=== PATIENT | female | born 1945 | race Caucasian/White ===

== ENCOUNTER 2017-07-25 12:24 | Emergency (ER) | payer OTHER ==
[~2017-07-25] VITALS: Ht 162.6 cm; Wt 73.5 kg
[~2017-07-25 12:24] MED LIST: CLONAZEPAM0.5 MG; LEVAQUIN750 MG PO; SERTRALINE HCL50 MG
[2017-07-25] MEDS ORDERED: CEPHALEXIN500 M1 (12:59)
[2017-07-25] MEDS ORDERED: ACYCLOVIR800 MG (12:59)
[2017-07-25] MEDS ORDERED: POLYMYXIN B-TMP10 ML (13:00)
== END 2017-07-25 14:03 | disposition home or self-care (01) ==
LOC: ER 12:24
DX: H05.011 Cellulitis of right orbit (principal); B02.9 Zoster without complications

== ENCOUNTER 2020-05-17 16:22 | Emergency (ER) | payer OTHER ==
[~2020-05-17] VITALS: Ht 160 cm; Wt 85.3 kg
[~2020-05-17 16:22] MED LIST changes: +ACYCLOVIR800 MG; +CEPHALEXIN500 M1; +POLYMYXIN B-TMP10 ML
== END 2020-05-17 19:09 | disposition home or self-care (01) ==
LOC: ER 16:22
DX: R41.0 Disorientation, unspecified (principal)

== ENCOUNTER 2020-05-18 09:41 | Outpatient (CLI) | payer OTHER | END 2020-05-18 09:54 | disposition home or self-care (01) | LOC: NUCLEAR 09:41 | DX: R41.0 Disorientation, unspecified (principal); I67.89 Other cerebrovascular disease ==

== ENCOUNTER 2020-05-18 12:06 | Outpatient (CLI) | payer OTHER | END 2020-05-18 12:19 | disposition home or self-care (01) | LOC: MRI 12:06 | PROVIDERS: ATTEND Psychiatry & Neurology Clinical Neurophysiology | DX: R41.89 Other symptoms and signs involving cognitive functions and awareness (principal); G93.89 Other specified disorders of brain | CPT/HCPCS: 70551 ==

== ENCOUNTER 2020-10-19 18:07 | Emergency (ER) | payer OTHER ==
[~2020-10-19] VITALS: Ht 165.1 cm; Wt 79.4 kg
[2020-10-19] MEDS ORDERED: NEURONTIN300 MG (18:35)
[2020-10-19] MEDS ORDERED: PROPANOLOL (18:35)
== END 2020-10-19 21:52 | disposition left against medical advice (07) ==
LOC: ER 18:07
DX: R22.43 Localized swelling, mass and lump, lower limb, bilateral (principal); I10 Essential (primary) hypertension

== ENCOUNTER 2020-10-20 08:16 | Outpatient (CLI) | payer OTHER ==
[~2020-10-20 08:16] MED LIST changes: +NEURONTIN300 MG; +PROPANOLOL
== END 2020-10-20 08:17 | disposition home or self-care (01) ==
LOC: NUCLEAR 08:16
DX: M79.661 Pain in right lower leg (principal); M79.662 Pain in left lower leg